=== PATIENT | female | born 1950 | race Caucasian/White ===

== ENCOUNTER 2021-04-21 08:23 | Inpatient (IN) | payer MEDICARE, BC ==
[2021-04-21] MEDS ORDERED: DICYCLOMINE 10 MG/ML 2 ML AMP IM STA (08:33)
[2021-04-21] MEDS ORDERED: SODIUM CHLORIDE 0.9% 1,000 ML IV STA (08:33)
[2021-04-21] MEDS ORDERED: ONDANSETRON 4 MG/2 ML VIAL IVP STA (08:33)
[2021-04-21] MEDS ORDERED: PANTOPRAZOLE 40 MG/10 ML VIAL IVP STA (08:33)
--- NOTE | 2021-04-21 08:39 | ED ---
General Adult HPI - General Chief complaint: Dizziness Stated complaint: Syncope Time Seen by Provider: 04/21/21 08:26 Source: patient, RN notes reviewed Mode of arrival: EMS Limitations: no limitations - History of Present Illness Initial comments: Patient is a pleasant 70-year-old female presenting to the emergency department with diarrhea. Onset of symptoms was 3 days ago. Patient is having a least 5 or 6 episodes daily. Patient did vomit a few times several days ago. Patient has had decreased appetite. Patient has felt near syncopal and then lowered herself to the ground last night. Patient was on the ground for possibly a couple of hours. Patient never lost consciousness or injured herself. Patient has occasional abdominal cramping otherwise no pain. No chest pain or dyspnea. No headache or isolated weakness or speech problems or confusion. - Related Data Home Medications Medication Instructions Recorded Confirmed Alpha Lipoic Acid 50 mg PO DAILY 04/21/21 04/21/21 Ascorbic Acid [Vitamin C] 1,000 mg PO DAILY 04/21/21 04/21/21 Cholecalciferol [Vitamin D3 (125 125 mcg PO DAILY 04/21/21 04/21/21 Mcg = 5000 Iu)] [place]-3 Fatty Acids/Fish Oil [Fish 1 cap PO DAILY 04/21/21 04/21/21 Oil 1,000 mg Softgel] Zinc 50 mg PO DAILY 04/21/21 04/21/21 lisinopriL [Zestril] 2.5 mg PO DAILY 04/21/21 04/21/21 metFORMIN HCL 500 mg PO BID 04/21/21 04/21/21 Allergies Allergy/AdvReac Type Severity Reaction Status Date / Time Iodinated Contrast Media Allergy Anaphylaxis Verified 04/21/21 10:00 shellfish derived Allergy Anaphylaxis Verified 04/21/21 10:00 Review of Systems ROS Statement: Those systems with pertinent positive or pertinent negative responses have been documented in the HPI. ROS Other: All systems not noted in ROS Statement are negative. Constitutional: Denies: fever Eyes: Denies: eye pain ENT: Denies: ear pain Respiratory: Denies: cough, dyspnea Cardiovascular: Denies: chest pain Endocrine: Denies: fatigue Gastrointestinal: Reports: as per HPI, nausea, diarrhea Musculoskeletal: Denies: back pain Skin: Denies: rash Neurological: Denies: headache, weakness, confusion Past Medical History Past Medical History: Diabetes Mellitus, Hypertension History of Any Multi-Drug Resistant Organisms: None Reported Past Surgical History: Cholecystectomy, Hernia Repair Additional Past Surgical History / Comment(s): d and c, ovarian cyst removal, hernia x 2, abd adhesions removed Past Psychological History: No Psychological Hx Reported Smoking Status: Never smoker Past Alcohol Use History: None Reported Past Drug Use History: None Reported General Exam Limitations: no limitations General appearance: alert, in no apparent distress Head exam: Present: atraumatic, normocephalic Eye exam: Present: normal appearance, PERRL, EOMI. Absent: nystagmus ENT exam: Present: mucous membranes dry Neck exam: Present: normal inspection. Absent: tenderness Respiratory exam: Present: normal lung sounds bilaterally Cardiovascular Exam: Present: regular rate, normal rhythm GI/Abdominal exam: Present: soft, normal bowel sounds. Absent: distended, tenderness, guarding, rebound, rigid, pulsatile mass Extremities exam: Present: normal inspection. Absent: calf tenderness Neurological exam: Present: alert, CN II-XII intact. Absent: motor sensory deficit Expanded Neurological exam: Present: protecting the airway Speech: Present: fluid speech Cranial nerves: EOM's Intact: Normal Motor strength exam: RUE: 5, LUE: 5, RLE: 5, LLE: 5 Eye Response: (4) open spontaneously Motor Response: (6) obeys commands Verbal Response: (5) oriented Psychiatric exam: Present: normal affect, normal mood Skin exam: Present: normal color Course Vital Signs 04/21/21 04/21/21 08:27 08:58 Temperature 98 F Pulse Rate 72 62 Respiratory 18 18 Rate Blood Pressure 166/91 146/86 O2 Sat by Pulse 100 100 Oximetry EKG Findings - EKG Comments: EKG Findings:: Normal sinus rhythm with rate of 68. NJ 146. QRS 78. QT 424. QTC 450. Left axis. Poor R-wave progression. No acute ST change. Medical Decision Making - Medical Decision Making Patient reevaluated and updated. Patient hyponatremic from dehydration and will likely benefit from further fluids. Case discussed with Dr. Murrell who is in agreement. Orthostatics ordered. - Lab Data Result diagrams: 04/21/21 08:48 04/21/21 08:48 Lab Results 04/21/21 04/21/21 04/21/21 Range/Units 08:48 08:48 08:48 WBC 4.7 (3.8-10.6) k/uL RBC 4.25 (3.80-5.40) m/uL Hgb 12.5 (11.4-16.0) gm/dL Hct 36.6 (34.0-46.0) % MCV 86.1 (80.0-100.0) fL MCH 29.3 (25.0-35.0) pg MCHC 34.1 (31.0-37.0) g/dL RDW 12.9 (11.5-15.5) % Plt Count 183 (150-450) k/uL MPV 7.0 Neutrophils % 89 % Lymphocytes % 7 % Monocytes % 3 % Eosinophils % 0 % Basophils % 0 % Neutrophils # 4.2 (1.3-7.7) k/uL Lymphocytes # 0.4 L (1.0-4.8) k/uL Monocytes # 0.1 (0-1.0) k/uL Eosinophils # 0.0 (0-0.7) k/uL Basophils # 0.0 (0-0.2) k/uL PT 10.2 (9.0-12.0) sec INR 0.9 (<1.2) APTT 23.4 (22.0-30.0) sec Sodium 126 L (137-145) mmol/L Potassium 4.2 (3.5-5.1) mmol/L Chloride 94 L (98-107) mmol/L Carbon Dioxide 22 (22-30) mmol/L Anion Gap 10 mmol/L BUN 13 (7-17) mg/dL Creatinine 0.66 (0.52-1.04) mg/dL Est GFR (CKD-EPI)AfAm >90 (>60 ml/min/1.73 sqM) Est GFR (CKD-EPI)NonAf 90 (>60 ml/min/1.73 sqM) Glucose 207 H (74-99) mg/dL Calcium 8.7 (8.4-10.2) mg/dL Total Bilirubin 0.4 (0.2-1.3) mg/dL AST 30 (14-36) U/L ALT 20 (4-34) U/L Alkaline Phosphatase 111 (38-126) U/L Creatine Kinase 26 L (30-135) U/L Total Protein 6.7 (6.3-8.2) g/dL Albumin 4.0 (3.5-5.0) g/dL Amylase 46 (30-110) U/L Lipase 47 (23-300) U/L - Radiology Data Radiology results: image reviewed (Chest x-ray shows no acute process. Abdomi nal x-ray shows suggestion of colitis.) Disposition Clinical Impression: Dehydration, Hyponatremia Disposition: ADMITTED IP TO THIS HOSP Is patient prescribed a controlled substance at d/c from ED?: No Referrals: Aaron Almaguer MD [Primary Care Provider] - 1-2 days Decision Time: 10:10
[2021-04-21 09:09] LABS: Basophils % (A) 0 %; Eosinophils % (A) 0 %; HCT 36.6 % (34.0-46.0); HGB 12.5 gm/dL (11.4-16.0); Lymphocytes # (A) 0.4 k/uL (1.0-4.8); Lymphocytes % (A) 7 %; MCH 29.3 pg (25.0-35.0); MCHC 34.1 g/dL (31.0-37.0); MCV 86.1 fL (80.0-100.0); Monocytes # (A) 0.1 k/uL (0-1.0); Monocytes % (A) 3 %; Neutrophils # (A) 4.2 k/uL (1.3-7.7); Neutrophils % (A) 89 %; Platelet Count 183 k/uL (150-450); RBC 4.25 m/uL (3.80-5.40); RDW 12.9 % (11.5-15.5); WBC 4.7 k/uL (3.8-10.6)
[2021-04-21 09:16] LABS: ALT 20 U/L (4-34); AST 30 U/L (14-36); African American GFR (CKD) >90 (>60 ml/min/1.73 sqM); Alkaline Phosphatase 111 U/L (38-126); Amylase 46 U/L (30-110); Anion Gap 10 mmol/L; Blood Urea Nitrogen 13 mg/dL (7-17); Calcium 8.7 mg/dL (8.4-10.2); Carbon Dioxide 22 mmol/L (22-30); Chloride 94 mmol/L (98-107); Creatine Kinase 26 U/L (30-135); Glucose 207 mg/dL (74-99); Lipase 47 U/L (23-300); Non-African American GFR(CKD) 90 (>60 ml/min/1.73 sqM); Potassium 4.2 mmol/L (3.5-5.1); Sodium 126 mmol/L (137-145); Total Bilirubin 0.4 mg/dL (0.2-1.3); Total Protein 6.7 g/dL (6.3-8.2)
[2021-04-21 09:23] LABS: INR 0.9 (<1.2); Partial Thromboplastin Time 23.4 sec (22.0-30.0); Prothrombin Time 10.2 sec (9.0-12.0)
--- NOTE | 2021-04-21 09:38 | XR ---
EXAMINATION TYPE: XR KUB, XR chest 2V DATE OF EXAM: 04/21/2021 COMPARISON: NONE HISTORY: 70 years Female. STUDY INDICATION GIVEN: abdominal pain . TECHNIQUE: Upright and supine AP abdominal radiographs. Frontal and lateral chest radiographs IMPRESSION: Chest radiographs No focal airspace disease, pneumothorax or pleural effusion. The cardiomediastinal silhouette is normal in appearance. No acute osseous abnormalities seen. Abdominal radiographs Colonic thumbprinting and irregularity of the wall suggestive of gastrointestinal pathology such as c olitis. Other intra-abdominal gastrointestinal related to infectious, inflammatory or other etiologies cannot be determined on radiographs. The need for a CT of the abdomen and pelvis with oral and IV contrast should be determined on clinica l basis. No definite free abdominal air. No intestinal obstruction. No acute osseous abnormalities appreciated. Degenerative changes are seen in the lower lumbar spine. No abnormal calcifications seen.
[2021-04-21] MEDS ORDERED: ONDANSETRON 4 MG/2 ML VIAL IVP PRN (10:11)
[2021-04-21] MEDS ORDERED: NALOXONE 0.4 MG/ML 1 ML VIAL IV PRN (10:11)
[2021-04-21] MEDS ORDERED: SODIUM CHLORIDE 0.9% 1,000 ML IV SCH (10:15)
[2021-04-21] MEDS ORDERED: NON FORMULARY DRUG (Alpha Lipoic Acid [Alpha Lipoic Acid] 50 MG Tablet) PO SCH (14:45)
[2021-04-21] MEDS: ASCORBIC ACID 500 MG TAB PO SCH (15:46)
[2021-04-21] MEDS: CHOLECALCIFEROL 125 MCG (5000 IU) TABLET PO SCH (15:46)
[2021-04-21 17:18] LABS: Glucose,Whole Blood 154 mg/dL (75-99)
[2021-04-21] MEDS: INSULIN ASPART (NovoLOG) 100 UNIT/ML VIAL SQ SCH (17:48)
[2021-04-21] MEDS: LACTATED RINGERS 1,000 ML IV SCH (17:48)
[2021-04-21] MEDS ORDERED: LORazepam 0.5 MG TAB PO PRN (19:26)
[2021-04-21] MEDS ORDERED: ACETAMINOPHEN TAB 325 MG TAB PO PRN (19:26)
[2021-04-21] MEDS ORDERED: MELATONIN 3 MG TABLET PO PRN (19:26)
[2021-04-21] MEDS ORDERED: ENOXAPARIN 40 MG/0.4 ML SYRINGE SQ SCH (19:30)
--- NOTE | 2021-04-21 19:35 | P.HPIM ---
History of Present Illness H&P Date: 04/21/21 Chief Complaint: Diarrhea This is a pleasant 70-year-old patient who follows with Dr. Almaguer. Chronic stable medical conditions include diabetes, hypertension, urinary incontinence. Patient has been feeling unwell for close to 7 days. Slight cough. No fever no chills. Tired rundown. Has had several bowel movements from diarrhea. No abdominal pain. No cramping. Early in the weak she had headache for couple of days. No loss of taste or smell. Patient has been rather sick with coughing shortness of breath. With the patient and her are not vaccina kleber against COVID 19. does not want to get tested for the same. Patient did come back positive for COVID-19 in the ER. Patient's last bowel movement was this morning. Appetite and not been good. She has been drinking some water. Review of systems: GEN.: Tired, decreased appetite EYES: None HEENT: None NECK: None RESPIRATORY: None CARDIOVASCULAR: None GASTROINTESTINAL: As above GENITOURINARY: As above MUSCULOSKELETAL: None LYMPHATICS: None HEMATOLOGICAL: None PSYCHIATRY: None NEUROLOGICAL: None Past medical history to include: Diabetes, hypertension, urinary incontinence Social history: . Does not smoke or drink alcohol. Family history: Reviewed, noncontributory to presentation Physical examination: VITAL SIGNS: 98, 72, 18, 146/86, 100% on room air GENERAL: BMI 24.7, laying in bed, awake, tired. EYES: Pupils equal. Conjunctiva normal. HEENT: External appearance of nose and ears normal, oral cavity grossly normal. NECK: JVD not raised; masses not palpable. HEART: First and second heart sounds are normal; no edema. LUNGS: Respiratory rate normal; clear to auscultation. ABDOMEN: Soft, nontender, liver spleen not palpable, no masses palpable. PSYCH: Alert and oriented x3; mood and affect normal. NEUROLOGICAL: Cranial nerves grossly intact; no facial asymmetry, power and sensation grossly intact. LYMPHATICS: No lymph nodes palpable in the axilla and neck INVESTIGATIONS, reviewed in the clinical context: White count 4.7 hemoglobin 12.5 platelets 183 sodium 126 potassium 4.2 BUN 13 creatinine 0.66 Coronavirus [PCR]: Detected EKG tracing personally reviewed by nc-normal sinus rhythm. Rate 68. Chest x-ray film personally reviewed by me-lung arora clear Assessment and plan: -Acute severe diarrhea from COVID-19 likely. Patient's last bowel movement was this morning. Soft bland diet. IV fluids. Symptomatic treatment. -Acute COVID-19. Patient's current pulse ox on room air. No indication for steroids. Vitamin C vitamin D zinc -Diabetes mellitus type 2 on oral hypoglycemic Metformin. Follow Accu-Cheks -Essential hypertension Zestril 2.5 mg a day -Acute medical asthenia/dehydration from diarrhea IV fluids Lactated Ringer's. Resume home medications. Soft bland diet. Activity is started. Subcu Lovenox. Care was discussed the patient questions answered Past Medical History Past Medical History: Diabetes Mellitus, Hypertension History of Any Multi-Drug Resistant Organisms: None Reported Past Surgical History: Cholecystectomy, Hernia Repair Additional Past Surgical History / Comment(s): d and c, ovarian cyst removal, hernia x 2, abd adhesions removed Past Psychological History: No Psychological Hx Reported Smoking Status: Never smoker Past Alcohol Use History: None Reported Past Drug Use History: None Reported Medications and Allergies Home Medications Medication Instructions Recorded Confirmed Type Alpha Lipoic Acid 50 mg PO DAILY 04/21/21 04/21/21 History Ascorbic Acid [Vitamin C] 1,000 mg PO DAILY 04/21/21 04/21/21 History Cholecalciferol [Vitamin D3 (125 125 mcg PO DAILY 04/21/21 04/21/21 History Mcg = 5000 Iu)] [place]-3 Fatty Acids/Fish Oil [Fish 1 cap PO DAILY 04/21/21 04/21/21 History Oil 1,000 mg Softgel] Zinc 50 mg PO DAILY 04/21/21 04/21/21 History lisinopriL [Zestril] 2.5 mg PO DAILY 04/21/21 04/21/21 History metFORMIN HCL 500 mg PO BID 04/21/21 04/21/21 History Allergies Allergy/AdvReac Type Severity Reaction Status Date / Time Iodinated Contrast Media Allergy Anaphylaxis Verified 04/21/21 10:00 shellfish derived Allergy Anaphylaxis Verified 04/21/21 10:00 Physical Exam Vitals: Vital Signs Temp Pulse Pulse Pulse Pulse Resp BP 04/21/21 15:00 98.6 F 62 18 04/21/21 12:48 98.5 F 63 16 04/21/21 12:24 65 67 64 18 04/21/21 12:16 67 18 136/84 12/26/21 08:58 62 18 146/86 04/21/21 08:27 98 F 72 18 166/91 BP BP BP Pulse Ox 04/21/21 15:00 152/88 99 04/21/21 12:48 142/83 99 04/21/21 12:24 136/84 144/81 132/82 04/21/21 12:16 98 04/21/21 08:58 100 04/21/21 08:27 100 Intake and Output 04/21/21 04/21/21 04/21/21 06:59 14:59 22:59 Intake Total 118 Balance 118 Intake: Oral 118 Other: Weight 61.235 kg Results CBC & Chem 7: 04/21/21 08:48 04/21/21 08:48 Labs: Abnormal Lab Results - Last 24 Hours (Table) 04/21/21 04/21/21 04/21/21 Range/Units 08:48 08:48 10:35 Lymphocytes # 0.4 L (1.0-4.8) k/uL Sodium 126 L (137-145) mmol/L Chloride 94 L (98-107) mmol/L Glucose 207 H (74-99) mg/dL POC Glucose (mg/dL) (75-99) mg/dL Creatine Kinase 26 L (30-135) U/L Coronavirus (PCR) Detected A (Not Detectd) 04/21/21 Range/Units 17:10 Lymphocytes # (1.0-4.8) k/uL Sodium (137-145) mmol/L Chloride (98-107) mmol/L Glucose (74-99) mg/dL POC Glucose (mg/dL) 154 H (75-99) mg/dL Creatine Kinase (30-135) U/L Coronavirus (PCR) (Not Detectd) Thrombosis Risk Factor Assmnt - Choose All That Apply Each Risk Factor Represents 2 Points: Age 61-74 years Other congenital or acquired thrombophilia - If yes, enter type in comment: No Thrombosis Risk Factor Assessment Total Risk Factor Score: 2 Thrombosis Risk Factor Assessment Level: Low Risk
[2021-04-21 19:42] LABS: Glucose,Whole Blood 218 mg/dL (75-99)
[2021-04-21] MEDS: metFORMIN 500 MG TAB PO SCH (21:04)
[2021-04-21] MEDS: ZINC SULFATE 220 MG CAP PO SCH (21:04)
[2021-04-22] MEDS: LACTATED RINGERS 1,000 ML IV SCH (07:35)
[2021-04-22 07:59] LABS: Glucose,Whole Blood 138 mg/dL (75-99)
[2021-04-22 08:16] VITALS: BP 144/76; PULSE 55; RESP 16; TEMP 97.8
[2021-04-22] MEDS: INSULIN ASPART (NovoLOG) 100 UNIT/ML VIAL SQ SCH ×2 (08:34→13:01)
[2021-04-22] MEDS: ZINC SULFATE 220 MG CAP PO SCH (08:36)
[2021-04-22] MEDS: CHOLECALCIFEROL 125 MCG (5000 IU) TABLET PO SCH (08:36)
[2021-04-22] MEDS: ASCORBIC ACID 500 MG TAB PO SCH (08:36)
[2021-04-22] MEDS: metFORMIN 500 MG TAB PO SCH (08:37)
[2021-04-22] MEDS ORDERED: PANTOPRAZOLE 40 MG/10 ML VIAL IV SCH (09:00)
[2021-04-22 11:17] LABS: African American GFR (CKD) 97.5 (60.0-200.0); BUN/Creat Ratio 8.68 Ratio (12.00-20.00); Blood Urea Nitrogen 6.3 mg/dL (9.0-27.0); Calcium 8.4 mg/dL (8.7-10.3); Carbon Dioxide 24.8 mmol/L (20.0-27.5); Non-African American GFR(CKD) 84.1 (60.0-200.0); Potassium 4.2 mmol/L (3.5-5.5)
[2021-04-22 12:29] LABS: Glucose,Whole Blood 135 mg/dL (75-99)
--- NOTE | 2021-04-22 22:50 | P.DS ---
Providers Date of admission: 04/22/21 09:42 Expected date of discharge: 04/22/21 Attending physician: Travis Murrell Primary care physician: [facility] Course: Chief Complaint: Diarrhea This is a pleasant 70-year-old patient who follows with Dr. Almaguer. Chronic stable medical conditions include diabetes, hypertension, urinary incontinence. Patient has been feeling unwell for close to 7 days. Slight cough. No fever no chills. Tired rundown. Has had several bowel movements from diarrhea. No abdominal pain. No cramping. Early in the weak she had headache for couple of days. No loss of taste or smell. Patient has been rather sick with coughing shortness of breath. With the patient and her are not vaccinated against COVID 19. does not want to get tested for the same. Patient did come back positive for COVID-19 in the ER. Patient's last bowel movement was this morning. Appetite and not been good. She has been drinking some water. Admitted with severe diarrhea with COVID 19. Given IV fluids. Responded well. No indication for steroids. Today: Tolerating diet well. Up and about. No further diarrhea. Care was discussed with the patient. Patient counseled about drinking excessive water. Hyponatremia better. Discussion and discharge planning more than 35 minutes Past medical history to include: Diabetes, hypertension, urinary incontinence Social history: . Does not smoke or drink alcohol. Family history: Reviewed, noncontributory to presentation Physical examination: VITAL SIGNS: 97.8, 55, 16, 140/76, 98% room air GENERAL: Sitting up, comfortable EYES: Pupils equal. Conjunctiva normal. HEENT: External appearance of nose and ears normal, oral cavity grossly normal. NECK: JVD not raised; masses not palpable. HEART: First and second heart sounds are normal; no edema. LUNGS: Respiratory rate normal; clear to auscultation. ABDOMEN: Soft, nontender, liver spleen not palpable, no masses palpable. PSYCH: Alert and oriented x3; mood and affect normal. INVESTIGATIONS, reviewed in the clinical context: April 22: Sodium 133 White count 4.7 hemoglobin 12.5 platelets 183 sodium 126 potassium 4.2 BUN 13 creatinine 0.66 Coronavirus [PCR]: Detected EKG tracing personally reviewed by ca-normal sinus rhythm. Rate 68. Chest x-ray film personally reviewed by me-lung arora clear Assessment and plan: -Acute severe diarrhea from COVID-19 likely. Patient's last bowel movement was this morning. Soft bland diet. IV fluids. Symptomatic treatment. I'll and improved -Acute COVID-19. Patient's current pulse ox on room air. No indication for steroids. Vitamin C vitamin D zinc -Diabetes mellitus type 2 on oral hypoglycemic Metformin. Follow Accu-Cheks -Essential hypertension Zestril 2.5 mg a day -Acute medical asthenia/dehydration from diarrhea IV fluids -Hyponatremia from excessive water intake, decreased solute intake: Better Patient counseled Disposition: Home Plan - Discharge Summary Discharge Rx Participant: No New Discharge Prescriptions: Continue metFORMIN HCL 500 mg PO BID Zinc 50 mg PO DAILY [place]-3 Fatty Acids/Fish Oil [Fish Oil 1,000 mg Softgel] 1 cap PO DAILY Cholecalciferol [Vitamin D3 (125 Mcg = 5000 Iu)] 125 mcg PO DAILY lisinopriL [Zestril] 2.5 mg PO DAILY Ascorbic Acid [Vitamin C] 1,000 mg PO DAILY Alpha Lipoic Acid 50 mg PO DAILY Discharge Medication List Alpha Lipoic Acid 50 mg PO DAILY 04/21/21 [History] Ascorbic Acid [Vitamin C] 1,000 mg PO DAILY 04/21/21 [History] Cholecalciferol [Vitamin D3 (125 Mcg = 5000 Iu)] 125 mcg PO DAILY 04/21/21 [History] [place]-3 Fatty Acids/Fish Oil [Fish Oil 1,000 mg Softgel] 1 cap PO DAILY 04/21/21 [History] Zinc 50 mg PO DAILY 04/21/21 [History] lisinopriL [Zestril] 2.5 mg PO DAILY 04/21/21 [History] metFORMIN HCL 500 mg PO BID 04/21/21 [History] Follow up Appointment(s)/Referral(s): Aaron Almaguer MD [Primary Care Provider] - 1-2 days Patient Instructions/Handouts: Dehydration (DC) Activity/Diet/Wound Care/Special Instructions: soft bland diet, drink more juices or tea than water as advised by DR Murrell ( bananas, toast, rice and applesauce, smaller amounts more frequently if not hungry) Follow up as directed. Call your office with return or worsening of the symptoms that brought you here or any concerns. Good Hand washing. Discharge Disposition: HOME SELF-CARE
== END 2021-04-22 13:32 | disposition home or self-care (01) | DRG 177 ==
LOC: EC 08:23 → 6NMEDSUR 10:11 → OBSVTOIN 04-22 09:42
PROVIDERS: ADMIT Hospitalist; ATTEND Hospitalist
DX: U07.1 COVID-19 (principal); J12.82 Pneumonia due to coronavirus disease 2019; E87.1 Hypo-osmolality and hyponatremia; E11.9 Type 2 diabetes mellitus without complications; R53.1 Weakness; E86.0 Dehydration; I10 Essential (primary) hypertension; R19.7 Diarrhea, unspecified; R32 Unspecified urinary incontinence; Z79.84 Long term (current) use of oral hypoglycemic drugs; Z79.899 Other long term (current) drug therapy; Z91.041 Radiographic dye allergy status; Z91.013 Allergy to seafood; Z90.49 Acquired absence of other specified parts of digestive tract; Z87.19 Personal history of other diseases of the digestive system
CPT/HCPCS: 36415; 71046; 74018; 80048; 80053; 82150; 82550; 83690; 85025; 85610; 85730; 87635; 93005; 96361; 96372; 96374; 96375; 99285